=== PATIENT | female | born 1960 | race Caucasian/White ===

== ENCOUNTER 2016-09-29 10:54 | Inpatient (IN) ==
--- NOTE | 2016-09-28 21:21 | Discharge Summary ---
<Ashlie Bowen - Last Filed: 09/28/16 21:16> Date of Encounter: 09/28/16 - Discharge Diagnosis (1) Arthritis of knee, right Priority: Primary Status: Acute (2) HTN (hypertension) Priority: Secondary Status: Chronic Qualifiers: Hypertension type: essential hypertension Qualified Code(s): I10 - Essential (primary) hypertension (3) DMII (diabetes mellitus, type 2) Priority: Secondary Status: Chronic Qualifiers: Diabetes mellitus complication status: with unspecified complications Diabetes mellitus fci insulin use: unspecified fci insulin use status Qualified Code(s): E11.8 - Type 2 diabetes mellitus with unspecified complications (4) TRI on CPAP Priority: Secondary Status: Chronic (5) Obesity Priority: Secondary Status: Chronic Qualifiers: Obesity type: unspecified obesity type Obesity severity: morbid Qualified Code(s): E66.01 - Morbid (severe) obesity due to excess calories - Discharge Medications Home Medications: Aspirin Enteric Coated [Aspirin EC] 325 mg PO DAILY #21 tablet. 09/28/16 [Rx] OxyCODONE Immed Rel [Roxicodone 5 MG] 5 - 10 mg PO Q6HR PRN #40 tablet 09/28/16 [Rx] Aspirin [Lo-Dose Aspirin EC] 81 mg PO DAILY 09/29/16 [History] Diclofenac Sodium [Voltaren] 50 mg PO Q8HR 09/29/16 [History] FLUoxetine HCl [Prozac] 40 mg PO DAILY 09/29/16 [History] Fenofibrate Nanocrystallized [Tricor] 48 mg PO DAILY 09/29/16 [History] Linagliptin [Tradjenta] 5 mg PO DAILY 09/29/16 [History] Lisinopril [Zestril] 20 mg PO DAILY 09/29/16 [History] Multivitamin [Multi-Day Vitamins] 1 each PO DAILY 09/29/16 [History] Niacin [Niacor] 500 mg PO TID PRN 09/29/16 [History] Mcalester-3/Dha/Epa/Fish Oil [Fish Oil 1,000 mg Softgel] 1,000 mg PO DAILY 09/29/16 [History] Oxybutynin Chloride [Ditropan Xl] 5 mg PO DAILY 09/29/16 [History] Rosuvastatin [Crestor] 20 mg PO HS 09/29/16 [History] Allergies/Adverse Reactions: Allergies No Known Allergies Allergy (Verified 09/29/16 12:45) Primary care physician: Ian Luciano MD - Patient Status Disposition: Home, Self-Care Condition: Good - Discharge Instructions Follow Up With: Tarik Geller MD [Partnered Physician] - Ian Luciano MD [Primary Care Provider] - Additional Instructions: Discharge Instructions: Total Knee Replacement Please call [facility] ([phone]), your Primary Care Physician, or report to the Emergency Room if you have any of the following symptoms: Nausea, vomiting, fever greater that 101.5, swelling, chest pain, shortness of breath, increased pain/redness/drainage/odor for your incision site, numbness/ tingling, or any other concerning symptoms. ACTIVITY:Weight-bearing as tolerated. You may progress off support (crutches or walker) as tolerated. MEDICATIONS: Upon discharge resume your home medications. Take all the medications as prescribed. Take a stool softener if taking narcotic pain medications. Stool softeners are only effective if you drink enough fluids. Drink 6-8 glass of water or fluids a day, unless this is not allowed for another health problem. Despite using stool softeners, if you haven't had a bowel movement in 3 days, please switch to a gentle laxative. Gentle laxatives are sold over the counter. You should have a bowel movement within 24 hours, if not call the office. You will be discharged from the hospital with a prescription for pain medication. You are encouraged to decrease the use of narcotic pain medication as tolerated. Should you require a refill, please call the office. [facility] prescribes narcotic pain medication for only 4-6 weeks after surgery. If you require pain medication beyond this time period, you may be referred to your Primary Care Physician or to the Pain Clinic for further evaluation. Plan ahead for refills on pain medication as many narcotics either need to be picked up at the office or mailed. It is best to call 48-72 hours in advance of needing a prescription refill so you don't run out of medication. To help control the post-operative pain, you may take NSAIDs (Aleve,Advil, Motrin, Ibuprofen, Naprosyn) or Tylenol as prescribed on the bottle in addition to the pain medication. ANTICOAGULATION (blood thinners): Continue your Aspirin, Lovenox or Coumadin as prescribed to help prevent a blood clot in the leg or in the lungs. As long as your incision remains dry and you tolerate the NSAIDs (Aleve, Advil, Motrin, ibuprofen, naprosyn), it is OK to use the NSAIDS while you are taking your anticoagulation medication. Should your incision start to drain, stop the NSAID and contact our office. Common symptoms of blood clot in the legs include: localized pain, swelling, calf tenderness, redness or discoloration of the skin. Blood clot in the lung symptoms include: shortness of breath, rapid pulse, sweating, and chest pain that worsens with deep breathing, coughing up blood, lightheadedness, feelings of anxiety. If you experience any of these symptoms notify your physician immediately, go to the emergency room, or if having trouble breathing, call 911. WOUND CARE: Leave the dressing on for 7 to 10days. You may change the dressing if it becomes saturated greater than 50%. Do not get the dressing wet at anytime. Wash your hands with antibacterial soap, rinse and dry prior to any wound care. If you have fiona the visiting nurse or rehab facility can remove the stapes 10-14 days after surgery and place steri-strips across the wound. Leave the steri-strips in place until they fall off on their won. You may let water from the shower run on top of the steri-strips. If you do not have a visiting nurse or rehab facility, you will need to return to the office at 10-14 days for the fiona to be removed. If you have itching or redness around the dressing call the office. FOLLOW-UP: Please follow up with your surgeon in the orthopedic clinic in 4 weeks from the day of surgery. If you have fiona that need to be removed, you will need to come back to the office in 10-14 days from the day of surgery. - Hospital Course Hospital course: Ms. Collins is a 56 year old female - Time Spent with Patient Total time spent providing and/or coordinating discharge services: <Tarik Geller - Last Filed: 10/01/16 08:20> Date of Encounter: 10/01/16 Time of Encounter: 08:19 - Discharge Diagnosis (1) Arthritis of knee, right Priority: Primary Status: Acute (2) HTN (hypertension) Priority: Secondary Status: Chronic Qualifiers: Hypertension type: essential hypertension Qualified Code(s): I10 - Essential (primary) hypertension (3) DMII (diabetes mellitus, type 2) Priority: Secondary Status: Chronic Qualifiers: Diabetes mellitus complication status: with unspecified complications Diabetes mellitus fci insulin use: unspecified watermaster insulin use status Qualified Code(s): E11.8 - Type 2 diabetes mellitus with unspecified complications (4) TRI on CPAP Priority: Secondary Status: Chronic (5) Obesity Priority: Secondary Status: Chronic Qualifiers: Obesity type: unspecified obesity type Obesity severity: morbid Qualified Code(s): E66.01 - Morbid (severe) obesity due to excess calories Primary care physician: Ian Luciano MD - Patient Status Functional capacity at discharge: uses cane/walker Overall status at discharge: patient is progressing back to baseline - Hospital Course Hospital course: Ms. Collins is a 56 year old female The patient had an uneventful postoperative course. They received antibiotics and physical therapy and were discharged in stable condition. There will follow -up in the office in 2 weeks. Aspirin DVT prophylaxis - Time Spent with Patient Total time spent providing and/or coordinating discharge services:
[2016-09-29] MEDS ORDERED: Lidocaine -MPF 1% 2 ML VIAL ID ONE (11:16)
[2016-09-29] MEDS ORDERED: CeFAZolin Pre 2,000 MG/100 ML 2,000 MG/100 ML BAG IVPB ONE (11:16)
[2016-09-29] MEDS ORDERED: Ringers Solution, Lactated 1,000 ML IVC SCH ×2 (11:30→16:09)
[2016-09-29] MEDS ORDERED: Famotidine 20 MG/2 ML VIAL IVP ONE (11:42)
[2016-09-29] MEDS ORDERED: Gabapentin 300 MG CAPSULE PO ONE (11:44)
--- NOTE | 2016-09-29 11:54 | History & Physical Report ---
Date of Encounter: 09/29/16 Time of Encounter: 11:53 24 Hour HP Update - Instructions Instructions: If the History and Physical is less than 30 days old and was completed prior to A.M. admission and or procedure and has NOT been updated on calendar day of procedure please complete this update prior to performing procedure. - Update Patient reports changes in Medical Condition: No Changes in examination, assessment, or condition: No Changes in Medication: No Preop tests/diagnostics Reviewed: Yes Surgery Remains Indicated: Yes Consent for Planned Operative Procedure(s) Verified: Yes - Pre-Operative Checklist Preoperative Checklist Indicated: No Prophylactic Antibiotic Ordered: Yes Is VTE Prophylaxis Indicated?: Yes
--- NOTE | 2016-09-29 12:02 | Anesthesia Evaluation PreOp ---
Date of Encounter: 09/29/16 Time of Encounter: 12:00 - Past History Planned Operation: Rt TKA Cardiac History: HTN, Hyperlipidemia Pulmonary History: TRI Dx (CPAP 10) TOBACCO CURER History: Denies Any Significant HX Other Medical History: Diabetes Type II (Accu check 114), Other (Obese) Anesthesia History: No Prior Anesthetic Complications : No Alcohol Use: rarely Drug use: none Medications and Allergies Crestor 10/27/15 [History] Fish Oil 10/27/15 [History] Januvia 10/27/15 [History] Lisinopril 10/27/15 [History] MethylPREDNISolone [Medrol] 4 mg PO TAPER #21 tablet 10/27/15 [Rx] Multi-Day Vitamins 10/27/15 [History] Niacin 10/27/15 [History] Prozac 10/27/15 [History] Amoxicillin 875 mg PO BID #20 tablet 05/17/16 [Rx] Fluticasone Propionate Nasal [Flonase] 2 spray NS DAILY #1 bottle 05/17/16 [Rx] Aspirin Enteric Coated [Aspirin EC] 325 mg PO DAILY #21 tablet. 09/28/16 [Rx] OxyCODONE Immed Rel [Roxicodone 5 MG] 5 - 10 mg PO Q6HR PRN #40 tablet 09/28/16 [Rx] Allergies No Known Allergies Allergy (Verified 10/27/15 19:26) - Meds/Allergy Pre-op Review Medications Reviewed: Yes Allergies Reviewed: Yes Beta Blockers on Current Med List: No Anesthesia Results - Labs Laboratory Tests 09/18/16 09/18/16 09:20 09:20 Hgb 12.6 Hct 38.1 Plt Count 289 Sodium 140 Potassium 4.1 BUN 11 Creatinine 0.77 - Imaging EKG: report reviewed (SR with Arrhythmia) Anesthesia Exam O2 Sat Height 1.71 m Height 1.71 m Height 1.71 m Weight 106.594 kg Weight 106.594 kg Weight 106.594 kg O2 Sat by Pulse Oximetry 96 Vital Signs Temp Pulse Resp BP Pulse Ox 98.9 F 64 18 134/78 96 09/29/16 11:19 09/29/16 11:19 09/29/16 11:19 09/29/16 11:19 09/29/16 11:19 Height: 5'7 Weight: 235 lbs NPO (# of Hours): MN Pain Scale: 0 - HEENT Pupil (Motor): Pupils equal, EOMI Mallampati: III Teeth: Normal Oral Opening: Greater than 3 - TOBACCO CURER LOC: Oriented TOBACCO CURER Motor: Normal RUE, Normal LUE, Normal RLE, Normal LLE, Normal Face TOBACCO CURER Sensory: Normal: RUE, LUE, RLE, LLE, Face - Cardiac Rhythm: Regular Murmur: None JVD: No Carotid Bruit: No - Pulmonary Breath Sounds: bilateral Clear Respiratory Effort: Symmetrical Anesthesia Assess/Plan ASA Score: 3 (HTN TRI Obese) Modified Gideon Scale for Level of Consciousness: Cooperative, oriented, and tranquil Anesthetic Plan: General, Regional Monitoring Plan: Standard Monitors Recovery Plan: PACU (Discussed GA and RA, agrees to proceed)
[2016-09-29] MEDS ORDERED: *HR* Midazolam HCl 2 MG/2 ML VIAL ONE (12:13)
[2016-09-29] MEDS ORDERED: *HR* FentaNYL (PF) 100 MCG/2 ML VIAL ONE (12:13)
[2016-09-29] MEDS ORDERED: *HR* Propofol 200 MG/20 ML VIAL IVP ONE (12:13)
[2016-09-29] MEDS ORDERED: Lidocaine -MPF 2% 2 ML VIAL ONE (12:14)
[2016-09-29] MEDS ORDERED: ROPIVACAINE HCL/PF 0.5% 30 ML VIAL ONE (13:04)
[2016-09-29] MEDS ORDERED: Bupivacaine/Clonidine Syringe 1 EACH SYRINGE ONE (13:05)
[2016-09-29] MEDS ORDERED: Propofol 500 MG/50 ML INFUS..BTL ONE ×2 (13:40→14:07)
[2016-09-29] MEDS ORDERED: Ondansetron 4 MG/2 ML VIAL ONE (13:47)
[2016-09-29] MEDS ORDERED: Ketorolac 30 MG/ML VIAL ONE (13:49)
[2016-09-29] MEDS ORDERED: *HR* Magnesium Sulfate 1 GM/2 ML VIAL ONE (13:49)
[2016-09-29] MEDS ORDERED: *HR* HYDROmorphone 2 MG/ML SYRINGE ONE (14:02)
[2016-09-29] MEDS ORDERED: *HR* HYDROmorphone (PF) 1 MG/ML SYRINGE IVP PRN (14:04)
[2016-09-29] MEDS ORDERED: *HR* Promethazine 25 MG/ML VIAL IVP PRN (14:04)
--- NOTE | 2016-09-29 14:07 | Anesthesia Procedures ---
Date of Encounter: 09/29/16 Time of Encounter: 13:15 Procedures: Anesthesia - Nerve Block Procedure Date: 09/29/16 Time: 13:15 Allergies/Adv Reactions: nka Pre-op Diagnosis: right knee OA Surgical Procedure: right TKA Checklist: Correct Patient Identifier, Correct procedure, History checked Correct side: Right Blood Thinner: No Monitor Applied: EKG, BP, Pulse Oximetry Supplemental Oxygen via Nasal Cannula (L/min): 2 Sedation: Versed (mg): 2 Sedation: Fentanyl (mcg): 100 Indication: Post Op Analgesia Pre-op Neuro Deficits: No Block Type: Femoral, Other (ipack) Catheter placed: No Sterile Technique: Yes Ultrasound used: Yes Anatomy identified: Yes Visual spread of Local: Yes Neuro Stimulation: Yes (femoral only) Nerve Stimulator Range: 0.2 - 0.4 mA Blood on Needle Aspiration: No Smooth Injection of Local: Yes Pain with Injection of Local: No Prep: Chlorhexadine Needle: 22 x 50 mm Stimuplex, 21 x 100 mm Stimuplex Local: 0.25% Bupivicaine w/Clonidine 20 mcg/cc, Ropivacaine Volume (cc): 50 Number of Attempts: 1 Complications: None/effective block Vitals: Vital Signs/O2 Sat/Glucose, Most Recent Temp Pulse Resp BP Pulse Ox 98.9 F 65 18 134/71 96 09/29/16 11:19 09/29/16 13:08 09/29/16 11:19 09/29/16 13:08 09/29/16 13:08 Blood Glucose* 114
--- NOTE | 2016-09-29 14:23 | Orthopedic Operative Note ---
Date of procedure: 09/29/16 Pre-op diagnosis: Right knee arthritis Post-op diagnosis: same Procedure: Procedure: Right Total knee replacement Estimated blood loss: 200 cc Hardware: Arthrex Femur: 5 Tibia:4 PS insert:8 Patella:34 Exam Under anesthesia: Loss full extension 10 degrees full flexion no instability Procedural Notes: Grade 4 arthritic changes all 3 compartments Operative procedure: The patient was brought to the operating room and placed on the operating room table. After general anesthesia was administered the operative knee was examined. Findings were noted in the exam under anesthesia. The operative extremity was prepped and draped in sterile surgical fashion. The patient received IV antibiotics prior to skin incision. A standard midline incision was made centered over the patella. The incision was made through the skin and subcutaneous tissue. A medial parapatellar tendon approach was performed. Care was taken to preserve tissue along the medial aspect of the patella. And to protect the patella tendon. The deep MCL was released off the medial tibia. The infra patella fat pad was excised. Knee was brought into flexion. Patient noted to have grade 4 arthritic changes all 3 compartments The entry hole was made for the intramedullary femoral guide. The guide was seated in 6 degrees of valgus. Anterior cut was made followed by the distal cut. The ACL the PCL the medial and the lateral menisci were excised. The tibia was subluxed forward. The entry hole was made for the intramedullary tibial guide. Guide was seated to resect 2 mm off the more abnormal side. The knee was brought into flexion the distal femur was sized to a 5. The femoral guide was seated, the anterior cut was made followed by the posterior condylar cut, followed by the chamfer cuts. The finishing guide was seated the box cut was made and the lug holes were drilled. The tibia was sized to a 4, the tibial tray was seated and prepared with the large drill followed by the fin cutter. Trial reduction revealed full extension no varus valgus instability with the appropriate 8 PS Avelina. The patella was everted and cut was made at the level of the insertion of the quadriceps and patella tendon. The patella was sized to a 34 the guide was seated and the lug holes are drilled. Trial reduction revealed excellent patella tracking. All trial components were removed all bony surfaces were irrigated. The tibia was cemented first followed by the femur. The 8 PS Avelina was seated and the knee was brought into full extension. The patella was cemented and held in place with the patellar holding clamp. After the cement had hardened, the knee sat for 2 minutes with a Betadine saline solution. The knee was then irrigated out with 2 L of pulse irrigation. The extensor mechanism was closed with #2 FiberWire suture and #2 PDS suture. The subcutaneous tissue was then irrigated and closed deep with #1 PDS suture superficially with 0 PDS suture and skin was closed with skin fiona. The patient was then placed in a sterile dressing and a postoperative brace extubated and transferred to recovery room in stable condition. Anesthesia: GETA Surgeon: Tarik Geller Condition: stable Disposition: PACU
[2016-09-29] MEDS ORDERED: *HR* Phenylephrine 10 MG/ML VIAL ONE (14:29)
[2016-09-29 15:14] LABS: Hematocrit 33.2 % (35.3-44.9); Hemoglobin 10.7 g/dL (11.5-15.4)
--- NOTE | 2016-09-29 15:19 | Orthopedic Operative Note ---
Date of procedure: 09/29/16 Pre-op diagnosis: Right knee arthritis Post-op diagnosis: same Procedure: Procedure: Right Total knee replacement Estimated blood loss: 200 cc Hardware: Arthrex Femur: 5 Tibia: 5 PS insert:12 Patella:34 Exam Under anesthesia: loss of full extension 10 degrees, full flexion no instability Procedural Notes:Grade 4 arthritic all 3 compartments Operative procedure: The patient was brought to the operating room and placed on the operating room table. After general anesthesia was administered the operative knee was examined. Findings were noted in the exam under anesthesia. The operative extremity was prepped and draped in sterile surgical fashion. The patient received IV antibiotics prior to skin incision. A standard midline incision was made centered over the patella. The incision was made through the skin and subcutaneous tissue. A medial parapatellar tendon approach was performed. Care was taken to preserve tissue along the medial aspect of the patella. And to protect the patella tendon. The deep MCL was released off the medial tibia. The infra patella fat pad was excised. Knee was brought into flexion. Patient noted to have grade 4 arthritic changes all 3 compartments. The entry hole was made for the intramedullary femoral guide. The guide was seated in 6 degrees of valgus. Anterior cut was made followed by the distal cut. The ACL the PCL the medial and the lateral menisci were excised. The tibia was subluxed forward. The entry hole was made for the intramedullary tibial guide. Guide was seated to resect 2 mm off the more abnormal side. The knee was brought into flexion the distal femur was sized to a 5. The femoral guide was seated, the anterior cut was made followed by the posterior condylar cut, followed by the chamfer cuts. The finishing guide was seated the box cut was made and the lug holes were drilled. The tibia was sized to a 5, the tibial tray was seated and prepared with the large drill followed by the fin cutter. Trial reduction revealed full extension no varus valgus instability with the appropriate 12 PS Avelina. The patella was everted and cut was made at the level of the insertion of the quadriceps and patella tendon. The patella was sized to a 34 the guide was seated and the lug holes are drilled. Trial reduction revealed excellent patella tracking. All trial components were removed all bony surfaces were irrigated. The tibia was cemented first followed by the femur. The 12 PS Avelina was seated and the knee was brought into full extension. The patella was cemented and held in place with the patellar holding clamp. After the cement had hardened, the knee sat for 2 minutes with a Betadine saline solution. The knee was then irrigated out with 2 L of pulse irrigation. The extensor mechanism was closed with #2 FiberWire suture and #2 PDS suture. The subcutaneous tissue was then irrigated and closed deep with #1 PDS suture superficially with 0 PDS suture and skin was closed with skin fiona. The patient was then placed in a sterile dressing and a postoperative brace extubated and transferred to recovery room in stable condition. Anesthesia: LOWELL Surgeon: Tarik Geller Adjusto Writer Operator: Ashlie Bowen Condition: stable Disposition: PACU
--- NOTE | 2016-09-29 15:22 | Anesthesia Evaluation Post Op ---
Date of Encounter: 09/29/16 Time of Encounter: 15:25 - Vital Signs Vital Signs: Vital Signs/O2 Sat/Glucose, Most Current Temp Pulse Resp BP Pulse Ox 09/29/16 15:12 67 14 115/72 98 09/29/16 15:02 67 14 103/72 100 09/29/16 14:52 98.1 F 70 16 109/67 96 09/29/16 13:08 65 134/71 96 - Lungs Lungs: Clear Ascult./Percussion - Airway Airway: Non-obstructed - Cardiovascular Regular Rate - Mental Status Mental Status: Alert & Oriented, Answers Appropriately - Pain Pain Scale: 0 - Nausea Vomiting Nausea Vomiting: Not Present - Hydration Hydration: Ice chips - Discharge PostOp Status: Transfer Patient to floor
[2016-09-29] MEDS ORDERED: *HR* Dextrose 50 % in Water (Syg) 50 ML SYRINGE IVP PRN (16:09)
[2016-09-29] MEDS ORDERED: ceFAZolin 2,000 MG in D5% in Water 100 ML IVPB SCH (16:09)
[2016-09-29] MEDS ORDERED: Dextrose Gel 15 GM PO PRN ×2 (16:09)
[2016-09-29] MEDS ORDERED: Temazepam 15 MG CAPSULE PO PRN (16:09)
[2016-09-29] MEDS ORDERED: Naloxone 0.4 MG/ML INJ IVP PRN (16:09)
[2016-09-29] MEDS ORDERED: *HR* OxyCODONE Immed Rel 5 MG TABLET PO PRN (16:09)
[2016-09-29] MEDS ORDERED: D5% in Water 1,000 ML IVC PRN (16:09)
[2016-09-29] MEDS ORDERED: Sennosides 8.6 MG TABLET PO PRN (16:09)
[2016-09-29] MEDS ORDERED: MOM Conc 10 ML UD.LIQ PO PRN (16:09)
[2016-09-29] MEDS: Insulin LISPRO 300 UNITS/3 ML VIAL SQ SCH ×2 (16:25→20:17)
[2016-09-29] MEDS: *HR* Enoxaparin 30 MG/0.3 ML SYRINGE SQ SCH (16:31)
[2016-09-29] MEDS ORDERED: *HR* Enoxaparin 30 MG/0.3 ML SYRINGE SQ SCH (18:00)
[2016-09-29] MEDS: *HR* OxyCODONE Immed Rel 5 MG TABLET PO PRN (20:16)
[2016-09-29] MEDS: ceFAZolin 2,000 MG in D5% in Water 100 ML IVPB SCH (23:01)
[2016-09-29] MEDS: *HR* HYDROmorphone (PF) 1 MG/ML SYRINGE IVP PRN (23:05)
[2016-09-30] MEDS: ceFAZolin 2,000 MG in D5% in Water 100 ML IVPB SCH (02:15)
[2016-09-30] MEDS ORDERED: NIACIN 500 MG PO PRN (03:48)
[2016-09-30] MEDS: *HR* OxyCODONE Immed Rel 5 MG TABLET PO PRN ×5 (04:16→21:47)
[2016-09-30] MEDS: *HR* Enoxaparin 30 MG/0.3 ML SYRINGE SQ SCH ×2 (06:21→17:23)
--- NOTE | 2016-09-30 06:26 | Orthopedics Progress Note ---
Date of Encounter: 09/30/16 Time of Encounter: 06:26 - Assessment and Plan (1) Arthritis of knee, right Current Visit: Yes Status: Acute (2) HTN (hypertension) Current Visit: Yes Status: Chronic Qualifiers: Hypertension type: essential hypertension Qualified Code(s): I10 - Essential (primary) hypertension (3) DMII (diabetes mellitus, type 2) Current Visit: Yes Status: Chronic Qualifiers: Diabetes mellitus complication status: with unspecified complications Diabetes mellitus skilled nursing insulin use: unspecified skilled nursing insulin use status Qualified Code(s): E11.8 - Type 2 diabetes mellitus with unspecified complications (4) TRI on CPAP Current Visit: Yes Status: Chronic (5) Obesity Current Visit: Yes Status: Chronic Qualifiers: Obesity type: unspecified obesity type Obesity severity: morbid Qualified Code(s): E66.01 - Morbid (severe) obesity due to excess calories Subjective Interval history: Patient was seen this morning doing well without complaints. Afebrile vital signs stable. Operative extremity: Neurovascularly intact Dressing clean dry and intact Calves nontender Assessment and plan: Continue with postoperative care Hematocrit 33 Objective Vital signs: Vital Signs Temp Pulse Resp BP Pulse Ox 09/30/16 04:08 99.1 F 75 15 118/69 95 09/30/16 00:37 98.1 F 82 18 127/57 93 09/29/16 19:53 2 09/29/16 19:32 98.5 F 88 18 131/75 09/29/16 16:59 98.0 F 67 16 108/55 93 09/29/16 16:30 97.5 F L 66 16 115/74 94 09/29/16 16:14 97.5 F L 63 16 119/77 97 09/29/16 15:22 98.2 F 66 13 123/77 97 09/29/16 15:12 67 14 115/72 98 09/29/16 15:02 67 14 103/72 100 09/29/16 14:52 98.1 F 70 16 109/67 96 09/29/16 13:08 65 134/71 96 09/29/16 11:19 98.9 F 64 18 134/78 96 Intake and Output 09/29/16 09/29/16 09/30/16 15:59 23:59 07:59 Intake Total 100 / 100 120 / 120 950 / 950 Output Total 200 / 200 400 / 400 1210 / 1210 Balance -100 / -100 -280 / -280 -260 / -260 Intake: IV Fluids 100 / 100 100 / 100 Ancef 2,000 MG In 100 / 100 Dextrose 5% 100 ML @ 200 mls/hr IVPB Q8HR ALEE Rx#: [id number] Ancef Premix 2,000 MG/100 100 / 100 ML 2,000 mg In 100 ml @ 200 mls/hr IVPB PREOP ONE Rx#:[id number] Oral 120 / 120 850 / 850 Output: Urine 400 / 400 1210 / 1210 Estimated Blood Loss 200 / 200 Other: Meal Dinner Percent of Meal Consumed 75% Weight 106.594 kg Blood Glucose* 129 176 - Labs CBC & BMP: 09/29/16 15:01 Labs: Abnormal lab results Hgb 10.7 g/dL (11.5-15.4) L 09/29/16 15:01 Hct 33.2 % (35.3-44.9) L 09/29/16 15:01 POC Glucose 176 (58-89) H 09/29/16 20:14 - VTE Documentation of Mechanical Device: Venous foot pump, device Consult Discharge Plan - Plan Referrals: Ian Luciano MD [Primary Care Provider] -
[2016-09-30 06:35] LABS: Hematocrit 31.8 % (35.3-44.9); Hemoglobin 10.7 g/dL (11.5-15.4)
[2016-09-30 06:40] LABS: BUN/Creatinine Ratio 15 (6-26); Blood Urea Nitrogen 11 mg/dL (7-20); Calcium 8.6 mg/dL (8.6-10.8); Carbon Dioxide 25 mEq/L (19-29); Chloride 100 mEq/L (98-109); Glucose 154 mg/dL (70-99); Osmolality,Calculated 276 (280-300); Potassium 4.4 mEq/L (3.5-4.5); Sodium 132 mEq/L (136-145); eGFR For African Americans > 60 (> 60); eGFR For Non-African Americans > 60 (> 60)
[2016-09-30] MEDS ORDERED: ceFAZolin 2,000 MG in D5% in Water 100 ML IVPB SCH (07:00)
[2016-09-30] MEDS: Multivit/Ca/Min/Fe/FA 1 TAB TABLET PO SCH (08:38)
[2016-09-30] MEDS: Fenofibrate 54 MG TABLET PO SCH (08:38)
[2016-09-30] MEDS: Lisinopril 20 MG TABLET PO SCH (08:39)
[2016-09-30] MEDS: FLUoxetine 20 MG CAPSULE PO SCH (08:39)
[2016-09-30] MEDS: Insulin LISPRO 300 UNITS/3 ML VIAL SQ SCH ×4 (08:42→19:58)
[2016-09-30] MEDS: *HR* HYDROmorphone (PF) 1 MG/ML SYRINGE IVP PRN ×4 (11:26→23:42)
[2016-09-30] MEDS: Ondansetron 4 MG/2 ML VIAL IVP PRN (17:35)
[2016-10-01] MEDS: *HR* OxyCODONE Immed Rel 5 MG TABLET PO PRN ×2 (02:49→08:23)
[2016-10-01] MEDS: *HR* Enoxaparin 30 MG/0.3 ML SYRINGE SQ SCH ×2 (05:16→16:31)
[2016-10-01] MEDS: *HR* HYDROmorphone (PF) 1 MG/ML SYRINGE IVP PRN (05:17)
[2016-10-01 05:24] LABS: Hematocrit 29.5 % (35.3-44.9)
[2016-10-01 05:37] LABS: BUN/Creatinine Ratio 12 (6-26); Blood Urea Nitrogen 8 mg/dL (7-20); Calcium 8.3 mg/dL (8.6-10.8); Carbon Dioxide 24 mEq/L (19-29); Chloride 93 mEq/L (98-109); Glucose 152 mg/dL (70-99); Osmolality,Calculated 263 (280-300); Potassium 4.3 mEq/L (3.5-4.5); Sodium 126 mEq/L (136-145); eGFR For African Americans > 60 (> 60); eGFR For Non-African Americans > 60 (> 60)
--- NOTE | 2016-10-01 08:20 | Orthopedics Progress Note ---
Date of Encounter: 10/01/16 Time of Encounter: 08:20 - Assessment and Plan (1) Arthritis of knee, right Current Visit: Yes Status: Acute (2) HTN (hypertension) Current Visit: Yes Status: Chronic Qualifiers: Hypertension type: essential hypertension Qualified Code(s): I10 - Essential (primary) hypertension (3) DMII (diabetes mellitus, type 2) Current Visit: Yes Status: Chronic Qualifiers: Diabetes mellitus complication status: with unspecified complications Diabetes mellitus mcfp insulin use: unspecified mcfp insulin use status Qualified Code(s): E11.8 - Type 2 diabetes mellitus with unspecified complications (4) TRI on CPAP Current Visit: Yes Status: Chronic (5) Obesity Current Visit: Yes Status: Chronic Qualifiers: Obesity type: unspecified obesity type Obesity severity: morbid Qualified Code(s): E66.01 - Morbid (severe) obesity due to excess calories Subjective Interval history: Patient was seen this morning doing well without complaints. Afebrile vital signs stable. Operative extremity: Neurovascularly intact Dressing clean dry and intact Calves nontender Assessment and plan: Continue with postoperative care Hemoglobin 10 discharged today Objective Vital signs: Vital Signs Temp Pulse Resp BP Pulse Ox 10/01/16 06:41 98.7 F 74 16 158/76 95 09/30/16 23:36 98.9 F 67 17 163/79 94 09/30/16 19:53 99 F 67 17 129/70 94 09/30/16 15:00 99.6 F 71 18 123/70 96 09/30/16 11:07 98.7 F 68 20 123/71 93 Intake and Output 09/30/16 10/01/16 10/01/16 23:59 07:59 15:59 Intake Total 120 / 120 150 / 150 Output Total 610 / 610 Balance 120 / 120 -460 / -460 Intake: Oral 120 / 120 150 / 150 Output: Urine 610 / 610 Other: Meal Dinner Percent of Meal Consumed 10% # Voids 2 Blood Glucose* 141 148 - Labs CBC & BMP: 10/01/16 05:06 10/01/16 05:06 Labs: Abnormal lab results Hgb 10.0 g/dL (11.5-15.4) L 10/01/16 05:06 Hct 29.5 % (35.3-44.9) L 10/01/16 05:06 Sodium 126 mEq/L (136-145) L 10/01/16 05:06 Chloride 93 mEq/L (98-109) L 10/01/16 05:06 Glucose 152 mg/dL (70-99) H 10/01/16 05:06 POC Glucose 146 (58-89) H 09/30/16 16:39 Calculated Osmolality 263 (280-300) L 10/01/16 05:06 Calcium 8.3 mg/dL (8.6-10.8) L 10/01/16 05:06 - VTE Documentation of Mechanical Device: Venous foot pump, device Consult Discharge Plan - Plan Additional Instructions: Discharge Instructions: Total Knee Replacement Please call [facility] ([phone]), your Primary Care Physician, or report to the Emergency Room if you have any of the following symptoms: Nausea, vomiting, fever greater that 101.5, swelling, chest pain, shortness of breath, increased pain/redness/drainage/odor for your incision site, numbness/ tingling, or any other concerning symptoms. ACTIVITY:Weight-bearing as tolerated. You may progress off support (crutches or walker) as tolerated. MEDICATIONS: Upon discharge resume your home medications. Take all the medications as prescribed. Take a stool softener if taking narcotic pain medications. Stool softeners are only effective if you drink enough fluids. Drink 6-8 glass of water or fluids a day, unless this is not allowed for another health problem. Despite using stool softeners, if you haven't had a bowel movement in 3 days, please switch to a gentle laxative. Gentle laxatives are sold over the counter. You should have a bowel movement within 24 hours, if not call the office. You will be discharged from the hospital with a prescription for pain medication. You are encouraged to decrease the use of narcotic pain medication as tolerated. Should you require a refill, please call the office. [facility] prescribes narcotic pain medication for only 4-6 weeks after surgery. If you require pain medication beyond this time period, you may be referred to your Primary Care Physician or to the Pain Clinic for further evaluation. Plan ahead for refills on pain medication as many narcotics either need to be picked up at the office or mailed. It is best to call 48-72 hours in advance of needing a prescription refill so you don't run out of medication. To help control the post-operative pain, you may take NSAIDs (Aleve,Advil, Motrin, Ibuprofen, Naprosyn) or Tylenol as prescribed on the bottle in addition to the pain medication. ANTICOAGULATION (blood thinners): Continue your Aspirin, Lovenox or Coumadin as prescribed to help prevent a blood clot in the leg or in the lungs. As long as your incision remains dry and you tolerate the NSAIDs (Aleve, Advil, Motrin, ibuprofen, naprosyn), it is OK to use the NSAIDS while you are taking your anticoagulation medication. Should your incision start to drain, stop the NSAID and contact our office. Common symptoms of blood clot in the legs include: localized pain, swelling, calf tenderness, redness or discoloration of the skin. Blood clot in the lung symptoms include: shortness of breath, rapid pulse, sweating, and chest pain that worsens with deep breathing, coughing up blood, lightheadedness, feelings of anxiety. If you experience any of these symptoms notify your physician immediately, go to the emergency room, or if having trouble breathing, call 911. WOUND CARE: Leave the dressing on for 7 to 10days. You may change the dressing if it becomes saturated greater than 50%. Do not get the dressing wet at anytime. Wash your hands with antibacterial soap, rinse and dry prior to any wound care. If you have fiona the visiting nurse or rehab facility can remove the stapes 10-14 days after surgery and place steri-strips across the wound. Leave the steri-strips in place until they fall off on their won. You may let water from the shower run on top of the steri-strips. If you do not have a visiting nurse or rehab facility, you will need to return to the office at 10-14 days for the fiona to be removed. If you have itching or redness around the dressing call the office. FOLLOW-UP: Please follow up with your surgeon in the orthopedic clinic in 4 weeks from the day of surgery. If you have fiona that need to be removed, you will need to come back to the office in 10-14 days from the day of surgery. Referrals: Tarik Geller MD [Partnered Physician] - Ian Luciano MD [Primary Care Provider] -
[2016-10-01] MEDS: Multivit/Ca/Min/Fe/FA 1 TAB TABLET PO SCH (08:22)
[2016-10-01] MEDS: Lisinopril 20 MG TABLET PO SCH (08:22)
[2016-10-01] MEDS: FLUoxetine 20 MG CAPSULE PO SCH (08:22)
[2016-10-01] MEDS: Fenofibrate 54 MG TABLET PO SCH (08:22)
[2016-10-01] MEDS: Insulin LISPRO 300 UNITS/3 ML VIAL SQ SCH ×4 (08:23→20:53)
[2016-10-01] MEDS: Ondansetron 4 MG/2 ML VIAL IVP PRN (16:31)
[2016-10-02] MEDS: *HR* Enoxaparin 30 MG/0.3 ML SYRINGE SQ SCH (05:11)
[2016-10-02 06:33] VITALS: BP 146/77
[2016-10-02] MEDS: Insulin LISPRO 300 UNITS/3 ML VIAL SQ SCH (07:34)
--- NOTE | 2016-10-02 07:54 | Orthopedics Progress Note ---
Date of Encounter: 10/02/16 Time of Encounter: 07:54 - Assessment and Plan (1) Arthritis of knee, right Current Visit: Yes Status: Acute (2) HTN (hypertension) Current Visit: Yes Status: Chronic Qualifiers: Hypertension type: essential hypertension Qualified Code(s): I10 - Essential (primary) hypertension (3) DMII (diabetes mellitus, type 2) Current Visit: Yes Status: Chronic Qualifiers: Diabetes mellitus complication status: with unspecified complications Diabetes mellitus credit and loan collections supervisor insulin use: unspecified m[facility] insulin use status Qualified Code(s): E11.8 - Type 2 diabetes mellitus with unspecified complications (4) TRI on CPAP Current Visit: Yes Status: Chronic (5) Obesity Current Visit: Yes Status: Chronic Qualifiers: Obesity type: unspecified obesity type Obesity severity: morbid Qualified Code(s): E66.01 - Morbid (severe) obesity due to excess calories Subjective Interval history: Patient was seen this morning doing well without complaints. Afebrile vital signs stable. Operative extremity: Neurovascularly intact Dressing clean dry and intact Calves nontender Assessment and plan: Continue with postoperative care discharged today Objective Vital signs: Vital Signs Temp Pulse Resp BP Pulse Ox 10/02/16 06:32 98.5 F 78 16 146/77 98 10/01/16 23:47 99.0 F 73 17 148/68 96 10/01/16 20:35 99.1 F 70 17 146/69 95 10/01/16 15:50 99.3 F 87 16 157/84 97 10/01/16 11:00 98.5 F 83 16 154/86 94 Intake and Output 10/01/16 10/01/16 10/02/16 15:59 23:59 07:59 Intake Total 590 / 590 370 / 370 50 / 50 Output Total 700 / 700 400 / 400 Balance -110 / -110 -30 / -30 50 / 50 Intake: Oral 590 / 590 370 / 370 50 / 50 Output: Urine 700 / 700 400 / 400 Other: # Voids 1 1 Blood Glucose* 140 142 140 - Labs CBC & BMP: 10/01/16 05:06 10/01/16 05:06 Labs: Abnormal lab results Hgb 10.0 g/dL (11.5-15.4) L 10/01/16 05:06 Hct 29.5 % (35.3-44.9) L 10/01/16 05:06 Sodium 126 mEq/L (136-145) L 10/01/16 05:06 Chloride 93 mEq/L (98-109) L 10/01/16 05:06 Glucose 152 mg/dL (70-99) H 10/01/16 05:06 POC Glucose 142 (58-89) H 10/01/16 20:08 Calculated Osmolality 263 (280-300) L 10/01/16 05:06 Calcium 8.3 mg/dL (8.6-10.8) L 10/01/16 05:06 - VTE Documentation of Mechanical Device: Venous foot pump, device Consult Discharge Plan - Plan Additional Instructions: Discharge Instructions: Total Knee Replacement Please call [facility] ([phone]), your Primary Care Physician, or report to the Emergency Room if you have any of the following symptoms: Nausea, vomiting, fever greater that 101.5, swelling, chest pain, shortness of breath, increased pain/redness/drainage/odor for your incision site, numbness/ tingling, or any other concerning symptoms. ACTIVITY:Weight-bearing as tolerated. You may progress off support (crutches or walker) as tolerated. MEDICATIONS: Upon discharge resume your home medications. Take all the medications as prescribed. Take a stool softener if taking narcotic pain medications. Stool softeners are only effective if you drink enough fluids. Drink 6-8 glass of water or fluids a day, unless this is not allowed for another health problem. Despite using stool softeners, if you haven't had a bowel movement in 3 days, please switch to a gentle laxative. Gentle laxatives are sold over the counter. You should have a bowel movement within 24 hours, if not call the office. You will be discharged from the hospital with a prescription for pain medication. You are encouraged to decrease the use of narcotic pain medication as tolerated. Should you require a refill, please call the office. [facility] prescribes narcotic pain medication for only 4-6 weeks after surgery. If you require pain medication beyond this time period, you may be referred to your Primary Care Physician or to the Pain Clinic for further evaluation. Plan ahead for refills on pain medication as many narcotics either need to be picked up at the office or mailed. It is best to call 48-72 hours in advance of needing a prescription refill so you don't run out of medication. To help control the post-operative pain, you may take NSAIDs (Aleve,Advil, Motrin, Ibuprofen, Naprosyn) or Tylenol as prescribed on the bottle in addition to the pain medication. ANTICOAGULATION (blood thinners): Continue your Aspirin, Lovenox or Coumadin as prescribed to help prevent a blood clot in the leg or in the lungs. As long as your incision remains dry and you tolerate the NSAIDs (Aleve, Advil, Motrin, ibuprofen, naprosyn), it is OK to use the NSAIDS while you are taking your anticoagulation medication. Should your incision start to drain, stop the NSAID and contact our office. Common symptoms of blood clot in the legs include: localized pain, swelling, calf tenderness, redness or discoloration of the skin. Blood clot in the lung symptoms include: shortness of breath, rapid pulse, sweating, and chest pain that worsens with deep breathing, coughing up blood, lightheadedness, feelings of anxiety. If you experience any of these symptoms notify your physician immediately, go to the emergency room, or if having trouble breathing, call 911. WOUND CARE: Leave the dressing on until your followup appointment (10/09/16 @ 9: 45am with GERONIMO Delarosa) . You may change the dressing if it becomes saturated greater than 50% (contact [facility] for a dressing change). Do not get the dressing wet at anytime. Wash your hands with antibacterial soap, rinse and dry prior to any wound care. If you have fiona the visiting nurse or rehab facility can remove the stapes 10-14 days after surgery and [address] steri-strips across the wound. Leave the steri-strips in place until they fall off on their won. You may let water from the shower run on top of the steri-strips. If you do not have a visiting nurse or rehab facility, you will need to return to the office at 10-14 days for the fiona to be removed. If you have itching or redness around the dressing call the office. FOLLOW-UP: Please follow up with your surgeon in the orthopedic clinic in 4 weeks from the day of surgery. If you have fiona that need to be removed, you will need to come back to the office in 10-14 days from the day of surgery. Referrals: Tarik Geller MD [Partnered Physician] - 10/28/16 8:35 am Ashlie Bowen PAC [Physician Dental Hygiene Administrative Assistant] - 10/09/16 9:45 am Ian Luciano MD [Primary Care Provider] - 02/09/17 8:00 am Michelle Centeno MD [Partnered Physician] - 12/19/16 8:20 am
[2016-10-02] MEDS: Multivit/Ca/Min/Fe/FA 1 TAB TABLET PO SCH (09:26)
[2016-10-02] MEDS: Lisinopril 20 MG TABLET PO SCH (09:27)
[2016-10-02] MEDS: FLUoxetine 20 MG CAPSULE PO SCH (09:27)
[2016-10-02] MEDS: Fenofibrate 54 MG TABLET PO SCH (09:27)
== END 2016-10-02 09:44 | disposition home or self-care (01) | DRG 470 ==
LOC: SAMDAY 10:54 → 3NENU 15:27
PROVIDERS: ADMIT Orthopaedic Surgery; ATTEND Orthopaedic Surgery

== ENCOUNTER 2017-06-05 10:21 | Inpatient (IN) ==
[~2017-06-05 10:21] MED LIST: Povidone-Iodine 22.5 ML, Sodium Chloride IRRigation 500 ML IR ONE
[2017-06-05] MEDS ORDERED: CeFAZolin Syr 2,000MG/20 ML 2,000 MG/20 ML SYRINGE IVPB ONE (10:51)
[2017-06-05] MEDS ORDERED: Lidocaine -MPF 1% 2 ML VIAL ID ONE (10:51)
--- NOTE | 2017-06-05 10:51 | Anesthesia Evaluation PreOp ---
Date of Encounter: 06/05/17 Time of Encounter: 10:49 - Past History Planned Operation: revisiion tight TKA Cardiac History: HTN, Hyperlipidemia Pulmonary History: TRI Dx (CPAP 10) Other Medical History: Diabetes Type II, Other (obese) Anesthesia History: Past Anesthesia (right TKA 10/08, elver, D&C, Left TKA, tubal ), Problems (PONV) : No Alcohol Use: none Drug use: none Medications and Allergies Diclofenac Sodium [Voltaren] 50 mg PO Q8HR 09/29/16 [History] FLUoxetine HCl [Prozac] 40 mg PO DAILY 09/29/16 [History] Fenofibrate Nanocrystallized [Tricor] 48 mg PO DAILY 09/29/16 [History] Linagliptin [Tradjenta] 5 mg PO DAILY 09/29/16 [History] Lisinopril [Zestril] 20 mg PO DAILY 09/29/16 [History] Multivitamin [Multi-Day Vitamins] 1 each PO DAILY 09/29/16 [History] Niacin [Niacor] 500 mg PO TID PRN 09/29/16 [History] [place]-3/Dha/Epa/Fish Oil [Fish Oil 1,000 mg Softgel] 1,000 mg PO DAILY 09/29/16 [History] Oxybutynin Chloride [Ditropan Xl] 5 mg PO DAILY 09/29/16 [History] Rosuvastatin [Crestor] 20 mg PO HS 09/29/16 [History] 3 Allergy/AdvReac Type Severity Reaction Status Date / Time No Known Allergies Allergy Verified 06/05/17 10:48 - Meds/Allergy Pre-op Review Medications Reviewed: Yes Allergies Reviewed: Yes Beta Blockers on Current Med List: No Anesthesia Exam Weight: 104kg NPO (# of Hours): 8 - HEENT Pupil (Motor): EOMI Mallampati: II Teeth: Normal Oral Opening: Greater than 3 - PRESS PULLER LOC: Oriented PRESS PULLER Motor: Normal RUE, Normal LUE, Normal RLE, Normal LLE, Normal Face PRESS PULLER Sensory: Normal: RUE, LUE, RLE, LLE, Face - Cardiac Rhythm: Regular Murmur: None - Pulmonary Breath Sounds: bilateral Clear Respiratory Effort: Symmetrical Anesthesia Assess/Plan ASA Score: 2 Modified Gideon Scale for Level of Consciousness: Cooperative, oriented, and tranquil Anesthetic Plan: General (with block) Monitoring Plan: Standard Monitors Recovery Plan: PACU (agrees to GA and block)
[2017-06-05] MEDS ORDERED: Scopolamine Patch 1.5 MG PATCH.TD72 TD ONE (10:57)
[2017-06-05] MEDS ORDERED: Plasma-Lyte A (PH 7.4) 1,000 ML IVC SCH (11:00)
--- NOTE | 2017-06-05 11:10 | History & Physical Report ---
Date of Encounter: 06/05/17 Time of Encounter: 11:10 24 Hour HP Update - Instructions Instructions: If the History and Physical is less than 30 days old and was completed prior to A.M. admission and or procedure and has NOT been updated on calendar day of procedure please complete this update prior to performing procedure. - Update Patient reports changes in Medical Condition: No Changes in examination, assessment, or condition: No Changes in Medication: No Preop tests/diagnostics Reviewed: Yes Surgery Remains Indicated: Yes Consent for Planned Operative Procedure(s) Verified: Yes - Pre-Operative Checklist Preoperative Checklist Indicated: No Prophylactic Antibiotic Ordered: Yes Is VTE Prophylaxis Indicated?: Yes
--- NOTE | 2017-06-05 11:21 | Discharge Summary ---
Date of Encounter: 06/08/17 Time of Encounter: 07:46 - Discharge Diagnosis (1) Obesity (BMI 35.0-39.9 without comorbidity) Priority: Secondary Status: Chronic (2) HTN (hypertension) Priority: Secondary Status: Chronic Qualifiers: Hypertension type: unspecified secondary hypertension Qualified Code(s): I15.9 - Secondary hypertension, unspecified; I15 - Secondary hypertension (3) DMII (diabetes mellitus, type 2) Priority: Secondary Status: Chronic Qualifiers: Diabetes mellitus complication status: with unspecified complications Diabetes mellitus residential insulin use: unspecified residential insulin use status Qualified Code(s): E11.8 - Type 2 diabetes mellitus with unspecified complications (4) TRI on CPAP Priority: Secondary Status: Chronic (5) Loose total knee arthroplasty Priority: Primary Status: Chronic Qualifiers: Encounter type: subsequent encounter Qualified Code(s): T84.038D - Mechanical loosening of other internal prosthetic joint, subsequent encounter; Z96.659 - Presence of unspecified artificial knee joint; Z96.659 - Presence of unspecified artificial knee joint (6) Status post revision of total knee Priority: Primary Status: Acute Qualifiers: Laterality: right Qualified Code(s): Z96.651 - Presence of right artificial knee joint (7) Acute blood loss anemia Priority: Primary Status: Acute - Discharge Medications Home Medications: Diclofenac Sodium [Voltaren] 50 mg PO Q8HR 09/29/16 [History] FLUoxetine HCl [Prozac] 40 mg PO DAILY 09/29/16 [History] Fenofibrate Nanocrystallized [Tricor] 48 mg PO DAILY 09/29/16 [History] Linagliptin [Tradjenta] 5 mg PO DAILY 09/29/16 [History] Lisinopril [Zestril] 20 mg PO DAILY 09/29/16 [History] Multivitamin [Multi-Day Vitamins] 1 each PO DAILY 09/29/16 [History] Niacin [Niacor] 500 mg PO TID PRN 09/29/16 [History] [place]-3/Dha/Epa/Fish Oil [Fish Oil 1,000 mg Softgel] 1,000 mg PO DAILY 09/29/16 [History] Oxybutynin Chloride [Ditropan Xl] 5 mg PO DAILY 09/29/16 [History] Rosuvastatin [Crestor] 20 mg PO HS 09/29/16 [History] Aspirin Enteric Coated [Aspirin EC] 325 mg PO BID #20 tablet. 06/05/17 [Rx] OxyCODONE Immed Rel [Roxicodone 5 MG] 5 mg PO Q4HR PRN #24 tablet 06/05/17 [Rx] Allergies/Adverse Reactions: 3 Allergy/AdvReac Type Severity Reaction Status Date / Time No Known Allergies Allergy Verified 06/05/17 10:48 Primary care physician: Ian Luciano MD - Patient Status Disposition: Home, Self-Care Condition: Good Overall status at discharge: patient is progressing back to baseline - Discharge Instructions Follow Up With: Tarik Geller MD [Partnered Physician] - 06/11/17 3:30 pm Ian Luciano MD [Primary Care Provider] - Additional Instructions: Discharge Instructions: Total Knee Replacement Please call [facility] ([phone]), your Primary Care Physician, or report to the Emergency Room if you have any of the following symptoms: Nausea, vomiting, fever greater that 101.5, swelling, chest pain, shortness of breath, increased pain/redness/drainage/odor for your incision site, numbness/ tingling, or any other concerning symptoms. ACTIVITY:Weight-bearing as tolerated. No Knee motion. Wear brace at all times. You may progress off support (crutches or walker) as tolerated. MEDICATIONS: Upon discharge resume your home medications. Take all the medications as prescribed. Take a stool softener if taking narcotic pain medications. Stool softeners are only effective if you drink enough fluids. Drink 6-8 glass of water or fluids a day, unless this is not allowed for another health problem. Despite using stool softeners, if you haven't had a bowel movement in 3 days, please switch to a gentle laxative. Gentle laxatives are sold over the counter. You should have a bowel movement within 24 hours, if not call the office. You will be discharged from the hospital with a prescription for pain medication. You are encouraged to decrease the use of narcotic pain medication as tolerated. Should you require a refill, please call the office. [facility] prescribes narcotic pain medication for only 4-6 weeks after surgery. If you require pain medication beyond this time period, you may be referred to your Primary Care Physician or to the Pain Clinic for further evaluation. Plan ahead for refills on pain medication as many narcotics either need to be picked up at the office or mailed. It is best to call 48-72 hours in advance of needing a prescription refill so you don't run out of medication. To help control the post-operative pain, you may take NSAIDs (Aleve,Advil, Motrin, Ibuprofen, Naprosyn) or Tylenol as prescribed on the bottle in addition to the pain medication. ANTICOAGULATION (blood thinners): Continue your Aspirin, Lovenox or Coumadin as prescribed to help prevent a blood clot in the leg or in the lungs. As long as your incision remains dry and you tolerate the NSAIDs (Aleve, Advil, Motrin, ibuprofen, naprosyn), it is OK to use the NSAIDS while you are taking your anticoagulation medication. Should your incision start to drain, stop the NSAID and contact our office. Common symptoms of blood clot in the legs include: localized pain, swelling, calf tenderness, redness or discoloration of the skin. Blood clot in the lung symptoms include: shortness of breath, rapid pulse, sweating, and chest pain that worsens with deep breathing, coughing up blood, lightheadedness, feelings of anxiety. If you experience any of these symptoms notify your physician immediately, go to the emergency room, or if having trouble breathing, call 911. WOUND CARE: Leave the dressing on for 7 to 10days. You may change the dressing if it becomes saturated greater than 50%. Do not get the dressing wet at anytime. Wash your hands with antibacterial soap, rinse and dry prior to any wound care. If you have fiona the visiting nurse or rehab facility can remove the stapes 10-14 days after surgery [address] steri-strips across the wound. Leave the steri-strips in place until they fall off on their won. You may let water from the shower run on top of the steri-strips. If you do not have a visiting nurse or rehab facility, you will need to return to the office at 10-14 days for the fiona to be removed. If you have itching or redness around the dressing call the office. FOLLOW-UP: Please follow up with your surgeon in the orthopedic clinic in 4 weeks from the day of surgery. If you have fiona that need to be removed, you will need to come back to the office in 10-14 days from the day of surgery. - Hospital Course Hospital course: Ms. Collins is a 56 year old female Status post revision tibia The patient had an uneventful postoperative course. They received antibiotics and physical therapy and were discharged in stable condition. There will follow -up in the office in 2 weeks. - Time Spent with Patient Total time spent providing and/or coordinating discharge services:
[2017-06-05] MEDS ORDERED: Ethanol\\Acetic Acid\\Na Ace\\Ben 1,000 ML IRRIG.SOLN IR ONE (11:25)
[2017-06-05] MEDS ORDERED: Bupivacaine/Clonidine Syringe 1 EACH SYRINGE ONE (11:54)
[2017-06-05] MEDS ORDERED: ROPIVACAINE HCL/PF 0.5% 30 ML VIAL ONE (11:59)
--- NOTE | 2017-06-05 12:23 | Anesthesia Procedures ---
Date of Encounter: 06/05/17 Time of Encounter: 12:21 Procedures: Anesthesia - Nerve Block Procedure Date: 06/05/17 Time: 12:21 Allergies/Adv Reactions: NKDA Pre-op Diagnosis: R knee aseptic loosening Surgical Procedure: R TKA, revision, Checklist: Correct Patient Identifier, Correct procedure, History checked Correct side: Right Blood Thinner: No Monitor Applied: EKG, BP, Pulse Oximetry Supplemental Oxygen via Nasal Cannula (L/min): 4 Sedation: Versed (mg): 2 Sedation: Fentanyl (mcg): 100 Indication: Post Op Analgesia (requested by Dr. Geller) Pre-op Neuro Deficits: No Block Type: Femoral, Other (iPACK) Catheter placed: No Sterile Technique: Yes Ultrasound used: Yes Anatomy identified: Yes Visual spread of Local: Yes Neuro Stimulation: Yes Nerve Stimulator Range: 0.2 - 0.4 mA Blood on Needle Aspiration: No Smooth Injection of Local: Yes Pain with Injection of Local: No Prep: Chlorhexadine Needle: 22 x 50 mm Stimuplex (used for femoral n. block), 21 x 100 mm Stimuplex (used for iPACK) Local: 0.25% Bupivicaine w/Clonidine 20 mcg/cc (20mL for iPACK), Ropivacaine ( 30mL for femoral n. block) Number of Attempts: 1 Complications: None/effective block Vitals: please see Jessica RUIZ's electronic records
[2017-06-05] MEDS ORDERED: Ondansetron 4 MG/2 ML VIAL IVP PRN (12:25)
[2017-06-05] MEDS ORDERED: Dexamethasone 4 MG/ML VIAL IVP PRN (12:25)
[2017-06-05] MEDS ORDERED: *HR* Labetalol 20 MG/4 ML SYRINGE IVP PRN (12:25)
[2017-06-05] MEDS ORDERED: *HR* FentaNYL (PF) 100 MCG/2 ML VIAL ONE ×2 (13:12→13:19)
[2017-06-05] MEDS ORDERED: *HR* Midazolam HCl 2 MG/2 ML VIAL ONE (13:19)
[2017-06-05] MEDS ORDERED: *HR* Propofol 200 MG/20 ML VIAL IVP ONE (13:19)
[2017-06-05] MEDS ORDERED: Lidocaine -MPF 2% 2 ML VIAL ONE (13:19)
[2017-06-05] MEDS ORDERED: EPHEDrine 50 MG/ML VIAL ONE (13:20)
[2017-06-05] MEDS ORDERED: Ondansetron 4 MG/2 ML VIAL ONE (13:25)
[2017-06-05] MEDS ORDERED: Dexamethasone 4 MG/ML VIAL ONE (13:25)
[2017-06-05] MEDS ORDERED: Ketorolac 30 MG/ML VIAL ONE (13:26)
[2017-06-05] MEDS ORDERED: *HR* HYDROmorphone 2 MG/ML SYRINGE ONE (13:45)
--- NOTE | 2017-06-05 14:28 | Orthopedic Operative Note ---
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 After general anesthesia was administered the operative knee was examined. Findings were noted in the exam under anesthesia. The operative extremity was prepped and draped in sterile surgical fashion. The patient received IV antibiotics prior to skin incision. A standard midline incision was made centered over the patella. The incision was made through the skin and subcutaneous tissue through the old incision. A medial parapatellar tendon approach was performed. Care was taken to preserve tissue along the medial aspect of the patella. And to protect the patella tendon. The deep MCL was released off the medial tibia. The infra patella fat pad was excised. Cultures were obtained as well as Gram stain. The knee was brought into flexion the tibial poly-was removed. The femur was well fixed. Attention was then turned to the tibial component. The tibial component was grossly loose and removed with an osteotome without any bone loss. Tibia was recut just below the level of the cement mantle. The tibia was prepared first sized to a 3 reamed to a 14 x 50 stem. The finishing punch was seated. Trial had good fit and fixation. Trial reduction revealed full extension and full flexion no varus valgus instability with an 20 PS Avelina and 5 mm medial and lateral augments. Trial components removed knee sat for 2 minutes with a Betadine saline solution. It was irrigated out with pulse irrigation. Components were assembled on the back table. The tibia cemented. The 20 PS Avelina was seated and secure. The had full flexion and full extension and excellent patella tracking no varus valgus instability. After the cement hardened the knee was irrigated out again. The knee was taken through a range of motion had excellent patella tracking. The extensor mechanism was closed with a running #2 Fiberwire suture and a running #2 PDS suture. The deep tissue was irrigated and closed deep with #1 PDS suture superficially with 0 PDS suture. The skin was closed with Dermabond and skin fiona. The patient was placed in a sterile dressing and postoperative brace. They were extubated and transferred to recovery room in stable condition. Anesthesia: GETA Surgeon: Tarik Geller Was there an registrar assistant present: No Estimated blood loss (cc): 200 Condition: stable Disposition: PACU
[2017-06-05] MEDS: *HR* HYDROmorphone (PF) 1 MG/ML SYRINGE IVP PRN ×5 (14:54→20:23)
[2017-06-05 14:55] LABS: Hematocrit 34.2 % (35.3-44.9); Hemoglobin 11.1 g/dL (11.5-15.4)
--- NOTE | 2017-06-05 15:44 | Anesthesia Evaluation Post Op ---
Date of Encounter: 06/05/17 Time of Encounter: 15:43 - Vital Signs Vital Signs: Vital Signs/O2 Sat/Glucose, Most Current Temp Pulse Resp BP Pulse Ox 06/05/17 15:27 69 16 139/73 94 06/05/17 15:17 77 16 140/69 95 06/05/17 15:07 97.0 F L 73 16 149/78 94 06/05/17 14:57 74 16 160/77 93 06/05/17 14:47 84 16 159/93 95 06/05/17 14:37 99.1 F 86 18 147/76 92 06/05/17 13:00 67 18 128/72 99 06/05/17 12:45 66 16 127/75 98 06/05/17 12:30 66 16 131/69 98 06/05/17 12:15 69 18 130/76 98 06/05/17 12:02 70 18 147/90 98 - Lungs Lungs: Clear Ascult./Percussion - Airway Airway: Non-obstructed - Cardiovascular Regular Rate, Baseline Rhythm - Mental Status Mental Status: Alert & Oriented, Answers Appropriately - Pain Pain Scale: 4 Pain Scale used: Numeric (1 - 10) - Nausea Vomiting Nausea Vomiting: Not Present - Hydration Hydration: Ice chips, Able to void - Discharge PostOp Status: Transfer Patient to floor
[2017-06-05] MEDS ORDERED: MOM Conc 10 ML UD.LIQ PO PRN (16:58)
[2017-06-05] MEDS ORDERED: Sennosides 8.6 MG TABLET PO PRN (16:58)
[2017-06-05] MEDS ORDERED: NIACIN 500 MG PO PRN (16:58)
[2017-06-05] MEDS ORDERED: Temazepam 15 MG CAPSULE PO PRN (16:58)
[2017-06-05] MEDS ORDERED: *HR* Dextrose 50 % in Water (Syg) 50 ML SYRINGE IVP PRN (16:58)
[2017-06-05] MEDS ORDERED: Dextrose Gel 15 GM/37.5 ML TUBE PO PRN ×2 (16:58)
[2017-06-05] MEDS ORDERED: *HR* OxyCODONE Immed Rel 5 MG TABLET PO PRN (16:58)
[2017-06-05] MEDS ORDERED: D5% in Water 1,000 ML IVC PRN (16:58)
[2017-06-05] MEDS ORDERED: Naloxone 0.4 MG/ML INJ IVP PRN (16:58)
[2017-06-05] MEDS ORDERED: *HR* Enoxaparin 30 MG/0.3 ML SYRINGE SQ SCH (18:00)
[2017-06-05] MEDS: Insulin LISPRO 300 UNITS/3 ML VIAL SQ SCH ×2 (18:33→19:49)
[2017-06-05] MEDS: CeFAZolin Premix DUPLEX 2,000 MG/50 ML BAG IVPB SCH (19:48)
[2017-06-05] MEDS: Ondansetron 4 MG/2 ML VIAL IVP PRN (20:44)
[2017-06-05] MEDS: Ringers Solution, Lactated 1,000 ML IVC SCH (20:48)
[2017-06-06] MEDS: *HR* OxyCODONE Immed Rel 5 MG TABLET PO PRN ×2 (02:21→21:45)
[2017-06-06 04:21] LABS: Hematocrit 32.6 % (35.3-44.9); Hemoglobin 10.5 g/dL (11.5-15.4)
[2017-06-06] MEDS: CeFAZolin Premix DUPLEX 2,000 MG/50 ML BAG IVPB SCH (04:28)
[2017-06-06 04:32] LABS: BUN/Creatinine Ratio 14 (6-26); Blood Urea Nitrogen 9 mg/dL (6-20); Calcium 8.7 mg/dL (8.6-10.3); Carbon Dioxide 28 mEq/L (23-29); Chloride 103 mEq/L (98-107); Glucose 153 mg/dL (70-105); Osmolality,Calculated 284 (280-300); Potassium 4.4 mEq/L (3.5-5.1); Sodium 136 mEq/L (136-145); eGFR For African Americans > 60 (> 60); eGFR For Non-African Americans > 60 (> 60)
[2017-06-06] MEDS: *HR* HYDROmorphone (PF) 1 MG/ML SYRINGE IVP PRN ×4 (05:28→22:56)
[2017-06-06] MEDS: *HR* Enoxaparin 30 MG/0.3 ML SYRINGE SQ SCH ×2 (05:30→17:07)
[2017-06-06] MEDS: Ondansetron 4 MG/2 ML VIAL IVP PRN ×4 (05:32→22:57)
[2017-06-06] MEDS: Insulin LISPRO 300 UNITS/3 ML VIAL SQ SCH ×4 (08:38→20:51)
[2017-06-06] MEDS ORDERED: FLUoxetine 20 MG CAPSULE PO SCH (09:00)
[2017-06-06] MEDS ORDERED: Fenofibrate 54 MG TABLET PO SCH (09:00)
[2017-06-06] MEDS ORDERED: Multivit/Ca/Min/Fe/FA 1 TAB TABLET PO SCH (09:00)
[2017-06-06] MEDS ORDERED: Lisinopril 20 MG TABLET PO SCH (09:00)
[2017-06-06] MEDS: Ringers Solution, Lactated 1,000 ML IVC SCH (10:59)
--- NOTE | 2017-06-06 15:58 | Orthopedics Progress Note ---
Date of Encounter: 06/06/17 Time of Encounter: 15:56 Subjective Principal diagnosis: Right total knee arthroplasty aseptic loosening Interval history: Patient is comfortable with occasional bouts of pain Right lower extremity: Knee immobilizer with cool back is intact, dressings are clean Patient moving ankle well and no pain with passive dorsiflexion stretch. Left calf is soft nontender Assessment: Postoperative day #1, stable Plan: Continue PT/OT Continue DVT prophylaxis Discharge plan for tomorrow Objective Vital signs: Vital Signs Temp Pulse Resp BP Pulse Ox 06/06/17 11:15 98.3 F 71 16 92/57 94 06/06/17 07:27 98.1 F 76 16 104/65 97 06/06/17 04:26 98.6 F 75 16 115/63 99 06/05/17 23:28 98.6 F 88 18 145/69 98 06/05/17 19:26 97.7 F 61 17 113/72 99 06/05/17 18:29 98.0 F 69 18 135/72 98 06/05/17 17:22 97.5 F L 61 16 109/70 97 06/05/17 16:50 96.1 F L 62 14 121/71 97 06/05/17 16:25 97.5 F L 62 14 127/69 96 Intake and Output 06/05/17 06/06/17 06/06/17 23:59 07:59 15:59 Intake Total 50 / 50 Output Total 1000 / 1000 300 / 300 Balance -950 / -950 -300 / -300 Intake: IV Fluids 50 / 50 Ancef Premix DUPLEX 2,000 mg In 50 / 50 50 ml @ 100 mls/hr IVPB Q8H [facility] Rx#:[id number] Output: Urine 1000 / 1000 300 / 300 Other: Blood Glucose* 163 127 121 - Labs CBC & BMP: 06/06/17 03:22 06/06/17 03:22 Labs: Abnormal lab results Hgb 10.5 g/dL (11.5-15.4) L 06/06/17 03:22 Hct 32.6 % (35.3-44.9) L 06/06/17 03:22 Glucose 153 mg/dL (70-105) H 06/06/17 03:22 POC Glucose 121 (58-89) H 06/06/17 12:14 - VTE Documentation of Mechanical Device: Venous foot pump, device Consult Discharge Plan - Plan Referrals: Ian Luciano MD [Primary Care Provider] -
[2017-06-07] MEDS: *HR* OxyCODONE Immed Rel 5 MG TABLET PO PRN (03:12)
[2017-06-07 04:26] LABS: Hematocrit 28.8 % (35.3-44.9); Hemoglobin 9.3 g/dL (11.5-15.4)
[2017-06-07 04:35] LABS: BUN/Creatinine Ratio 12 (6-26); Blood Urea Nitrogen 9 mg/dL (6-20); Calcium 8.6 mg/dL (8.6-10.3); Carbon Dioxide 29 mEq/L (23-29); Chloride 101 mEq/L (98-107); Glucose 143 mg/dL (70-105); Osmolality,Calculated 281 (280-300); Sodium 135 mEq/L (136-145); eGFR For African Americans > 60 (> 60); eGFR For Non-African Americans > 60 (> 60)
[2017-06-07] MEDS: *HR* Enoxaparin 30 MG/0.3 ML SYRINGE SQ SCH (05:04)
[2017-06-07 06:57] VITALS: BP 123/69
[2017-06-07] MEDS: Insulin LISPRO 300 UNITS/3 ML VIAL SQ SCH (08:15)
== END 2017-06-07 09:44 | disposition home or self-care (01) | DRG 467 ==
LOC: SAMDAY 10:21 → 3NENU 16:51
PROVIDERS: ADMIT Orthopaedic Surgery; ATTEND Orthopaedic Surgery